=== PATIENT | female | born 1960 | race Caucasian/White ===

== ENCOUNTER 2023-01-12 10:40 | Inpatient (IN) | payer MEDICARE, OTHER ==
[2023-01-12] MEDS ORDERED: Ondansetron PF 4 MG/2 ML Vial ONE ×2 (11:10→13:23)
[2023-01-12] MEDS ORDERED: Pantoprazole 80 MG, Admixture Fee 1 EACH in Sodium Chloride 0.9% 100 ML IVPB SCH (11:15)
[2023-01-12 12:20] LABS: #Lymphocytes 1.3 thou/uL (1.20-3.40); #Monocytes 0.6 thou/uL (0.11-0.59); %Eosinophils 0.1 % (0.0-10.0); %Lymphocytes 14.8 % (21.0-51.0); %Monocytes 6.7 % (0.0-10.0); %Neutrophils 78.4 % (42.0-75.0); Hemoglobin 14.4 g/dL (12.0-16.0); Mean Corpuscular HGB CONC 32.8 g/dL (32.0-36.0); Mean Corpuscular Hemoglobin 32.3 pg (27.0-31.0); Mean Corpuscular Volume 98.4 fl (78.0-98.0); Mean Platelet Volume 8.1 fL (7.4-10.4); Platelet Count 295 10x3/uL (130-400); RBC Distribution Width 11.9 % (11.5-14.5); Red Blood Cell (RBC) Count 4.46 mill/uL (4.20-5.40)
[2023-01-12 12:27] LABS: ALT (SGPT) 11 U/L (8-55); AST (SGOT) 15 U/L (5-34); Albumin 3.9 g/dL (3.4-4.8); Alkaline Phosphatase 124 U/L (40-110); Anion Gap 15 mmol/L (10-20); BUN (Urea Nitrogen) 17 mg/dL (9.8-20.1); Bilirubin, Total 0.3 mg/dL (0.2-1.2); Calc. Creatinine Clearance 0 mL/min (70-130); Calcium 9.9 mg/dL (7.8-10.44); Carbon Dioxide 30 mmol/L (23-31); Chloride 101 mmol/L (98-107); Estimated GFR 89; Globulin 2.8 g/dL (2.4-3.5); Glucose 127 mg/dL (80-115); Potassium 3.8 mmol/L (3.5-5.1); Protein, Total 6.7 g/dL (5.8-8.1); Sodium 142 mmol/L (136-145)
[2023-01-12 17:29] VITALS: BMI 36.3
[2023-01-12] MEDS: Lactated Ringer's 1,000 ML IV SCH (17:45)
[2023-01-12 18:59] LABS: Hemoglobin 13.6 g/dL (12.0-16.0)
[2023-01-12] MEDS: Pantoprazole 40 MG VIAL IVP SCH (21:19)
[2023-01-12] MEDS: Ondansetron PF 4 MG/2 ML Vial IVP PRN (21:19)
[2023-01-13] MEDS: Lactated Ringer's 1,000 ML IV SCH ×3 (01:35→16:34)
[2023-01-13] MEDS: Ondansetron PF 4 MG/2 ML Vial IVP PRN (01:55)
[2023-01-13 04:54] LABS: #Basophils 0.1 thou/uL (0.0-0.2); #Lymphocytes 2.7 thou/uL (1.20-3.40); #Monocytes 1.4 thou/uL (0.11-0.59); #Neutrophils 6.1 thou/uL (1.40-6.50); %Basophils 0.8 % (0.0-1.0); %Eosinophils 0.4 % (0.0-10.0); %Lymphocytes 25.9 % (21.0-51.0); %Monocytes 13.4 % (0.0-10.0); %Neutrophils 59.4 % (42.0-75.0); Hemoglobin 11.9 g/dL (12.0-16.0); Mean Corpuscular Hemoglobin 32.7 pg (27.0-31.0); Mean Corpuscular Volume 98.8 fl (78.0-98.0); Mean Platelet Volume 8.6 fL (7.4-10.4); Platelet Count 195 10x3/uL (130-400); RBC Distribution Width 11.7 % (11.5-14.5); Red Blood Cell (RBC) Count 3.64 mill/uL (4.20-5.40); White Blood Cell (WBC) Count 10.3 10x3/uL (4.8-10.8)
[2023-01-13 05:17] LABS: Anion Gap 10 mmol/L (10-20); BUN (Urea Nitrogen) 18 mg/dL (9.8-20.1); Calc. Creatinine Clearance 142 mL/min (70-130); Calcium 8.9 mg/dL (7.8-10.44); Carbon Dioxide 28 mmol/L (23-31); Chloride 105 mmol/L (98-107); Estimated GFR 99; Glucose 93 mg/dL (80-115); Potassium 3.3 mmol/L (3.5-5.1); Sodium 140 mmol/L (136-145)
[2023-01-13] MEDS ORDERED: Lidocaine 1% PF 5 ML VIAL ONE (08:20)
[2023-01-13] MEDS ORDERED: PROPOFOL 200 MG/20 ML VIAL ONE (08:20)
[2023-01-13] MEDS ORDERED: Ondansetron HCl/PF 4 MG/2 ML Vial IVP PRN (08:40)
[2023-01-13] MEDS: Pantoprazole 40 MG VIAL IVP SCH ×2 (09:19→20:42)
[2023-01-13] MEDS ORDERED: Potassium Chloride 20 MEQ TAB PO SCH (09:45)
[2023-01-13] MEDS ORDERED: diphenhydrAMINE 30 GM TUBE TOP PRN (11:37)
[2023-01-13] MEDS: Calcium Carbonate 500 MG TAB PO SCH ×2 (12:19→17:06)
[2023-01-13] MEDS: Docusate 100 MG CAP PO PRN (19:14)
[2023-01-13] MEDS ORDERED: Atorvastatin Calcium 40 MG TAB PO SCH (21:00)
[2023-01-13] MEDS ORDERED: Pramipexole Di-HCl 1 MG TAB PO SCH (21:00)
[2023-01-13] MEDS ORDERED: Loratadine 10 MG TAB PO SCH (21:00)
[2023-01-13] MEDS ORDERED: QUEtiapine 200 MG TAB PO SCH (21:00)
[2023-01-14] MEDS: Calcium Carbonate 500 MG TAB PO SCH ×4 (00:41→17:20)
[2023-01-14] MEDS ORDERED: Ferrous Sulfate 325 MG TAB PO SCH (08:00)
[2023-01-14 08:06] LABS: #Eosinphils 0.2 thou/uL (0.0-0.7); #Lymphocytes 2.9 thou/uL (1.20-3.40); #Monocytes 0.9 thou/uL (0.11-0.59); #Neutrophils 3.4 thou/uL (1.40-6.50); %Basophils 0.5 % (0.0-1.0); %Eosinophils 2.2 % (0.0-10.0); %Lymphocytes 39.2 % (21.0-51.0); %Monocytes 12.4 % (0.0-10.0); %Neutrophils 45.7 % (42.0-75.0); Mean Corpuscular HGB CONC 33.5 g/dL (32.0-36.0); Mean Corpuscular Volume 98.3 fl (78.0-98.0); Mean Platelet Volume 7.3 fL (7.4-10.4); Platelet Count 246 10x3/uL (130-400); RBC Distribution Width 11.7 % (11.5-14.5); Red Blood Cell (RBC) Count 3.63 mill/uL (4.20-5.40); White Blood Cell (WBC) Count 7.4 10x3/uL (4.8-10.8)
[2023-01-14 08:15] LABS: Phosphorus 3.5 mg/dL (2.3-4.7)
[2023-01-14 08:16] LABS: Anion Gap 11 mmol/L (10-20); BUN (Urea Nitrogen) 12 mg/dL (9.8-20.1); Calc. Creatinine Clearance 143 mL/min (70-130); Calcium 9.1 mg/dL (7.8-10.44); Carbon Dioxide 28 mmol/L (23-31); Chloride 105 mmol/L (98-107); Estimated GFR 99; Glucose 97 mg/dL (80-115); Magnesium 1.8 mg/dL (1.6-2.6); Potassium 3.5 mmol/L (3.5-5.1); Sodium 140 mmol/L (136-145)
[2023-01-14] MEDS ORDERED: Lisinopril 10 MG TAB PO SCH (09:00)
[2023-01-14] MEDS ORDERED: Polyethylene Glycol 3350 17 GM Packet PO SCH (09:00)
[2023-01-14] MEDS ORDERED: Magnesium Oxide 400 MG TAB PO SCH (09:00)
[2023-01-14] MEDS ORDERED: Meclizine HCl 25 MG TAB PO SCH (09:00)
[2023-01-14] MEDS: Pantoprazole 40 MG VIAL IVP SCH (09:43)
[2023-01-14] MEDS: Docusate 100 MG CAP PO PRN (09:45)
[2023-01-14 15:42] VITALS: BP 134/68; TEMP 97.6
[2023-01-14] MEDS ORDERED: Lansoprazole 15 MG/5 ML (BATCHED)UDCUP PO SCH (21:00)
[2023-01-14] MEDS ORDERED: Pantoprazole 40 MG GRANULES PACKET PO SCH (21:00)
== END 2023-01-14 18:12 | DRG 378 ==
LOC: ERS 10:40 → 2NO 16:25
PROVIDERS: ADMIT Student in an Organized Health Care Education/Training Program; ATTEND Student in an Organized Health Care Education/Training Program
PROC: 0DB78ZX Excision of Stomach, Pylorus, Via Natural or Artificial Opening Endoscopic, Diagnostic (ICD-10-PCS; principal; 2023-01-13)
DX: K92.0 Hematemesis (principal); K22.10 Ulcer of esophagus without bleeding; G20 Parkinson's disease; I25.10 Atherosclerotic heart disease of native coronary artery without angina pectoris; F31.9 Bipolar disorder, unspecified; E78.5 Hyperlipidemia, unspecified; G47.00 Insomnia, unspecified; I10 Essential (primary) hypertension; K21.9 Gastro-esophageal reflux disease without esophagitis; K59.00 Constipation, unspecified; G89.4 Chronic pain syndrome; E87.6 Hypokalemia; I48.0 Paroxysmal atrial fibrillation; K21.00 Gastro-esophageal reflux disease with esophagitis, without bleeding; K44.9 Diaphragmatic hernia without obstruction or gangrene; Z79.01 Long term (current) use of anticoagulants; Z79.899 Other long term (current) drug therapy; Z86.711 Personal history of pulmonary embolism; Z74.01 Bed confinement status
CPT/HCPCS: 36415; 80048; 80053; 81002; 83735; 84100; 84484; 85025; 85730; 86850; 86900; 86901; 88305; 93005; 96361; 96374; 96375; 96376; C9113; J2405; J2704; J7120